=== PATIENT | male | born 1980 | race Caucasian/White ===

== ENCOUNTER 2021-10-24 16:31 | Emergency (ER) | payer OTHER, MEDICAID, SELFPAY ==
[2021-10-24 16:42] VITALS: BP 146/79; PULSE 58; RESP 16; TEMP 36.7; O2SAT 100; BMI 22.7
--- NOTE | 2021-10-24 19:56 | ED_ITS ---
HPI - General Adult General Chief complaint: Dental/Oral Stated complaint: pain, broken tooth Time Seen by Provider: 10/24/21 19:32 Source: patient Mode of arrival: Ambulatory History of Present Illness HPI narrative: Patient is a 41-year-old male here for evaluation of right lower back teeth discomfort. He states that several days ago he was chewing on a piece ago when he felt like piece of his tooth came out. He then realized that it was most likely a piece of a filling. He has had discomfort in the area since then. Has been taking Tylenol and ibuprofen without any improvement. Attempted to contact a dentist today however no one can see him for. Time. Related Data Previous Rx's Medication Instructions Recorded hydrocodone 5 mg-acetaminophen 325 1 tab PO Q4-6H PRN #10 tab 10/24/21 mg tablet Allergies Allergy/AdvReac Type Severity Reaction Status Date / Time amoxicillin Allergy Verified 10/24/21 16:47 Review of Systems ENT Ears, Nose, Mouth, and Throat: Reports system reviewed and no additional complaints, except as documented and Reports as per HPI Respiratory Comments: No problems breathing Gastrointestinal Comments: No problems swallowing Hematologic/Lymphatic On Anticoagulants: No Patient History Medical History Healthy adult Social History lives independently: Yes Exam Initial Vital Signs Initial Vital Signs: Vital Signs Temperature 98.1 F 10/24/21 16:42 Pulse Rate 58 L 10/24/21 16:42 Respiratory Rate 16 10/24/21 16:42 Blood Pressure 146/79 H 10/24/21 16:42 Pulse Oximetry 100 10/24/21 16:42 HENMT Head: normal to inspection and normocephalic Face and sinus: normal facial exam Mouth: oral mucosae normal Teeth and gingiva: other (Right inferior posterior teeth with missing filling.) Resp Effort & Inspection: normal respiratory effort Cardio Rate: regular rate Neuro General: patient alert, patient awake and moves all extremities Course Vital Signs Vital signs: Vital Signs - 8 hr 10/24/21 20:17 Pulse Rate 51 L Respiratory Rate 17 Blood Pressure 127/74 Pulse Oximetry 96 Medical Decision Making [facility] Narrative Medical decision making narrative: Patient does have what appears to have a portion the filling missing in to have his right lower posterior teeth. There is no signs of any infection. A temporary filling was placed. Patient was informed that this was temporary and could potentially come out at any time. He understands that he needs definitive treatment with dental provider. No indication for antibiotics. He was given return precautions. He expressed understanding and agreement. Discharge Plan Departure Patient Disposition: Home Clinical Impression: Fracture of tooth Instructions: DI for Dental Pain Activity Restrictions/Additional Instructions: Your ultimately going to need to be seen by a dentist for definitive care. I would recommend not brushing your right lower teeth because this may dislodge the temporary filling that was placed. Also be careful with chewing. You can continue to take the Tylenol/ibuprofen. Return to the emergency department for any new symptoms. Prescriptions: New hydrocodone-acetaminophen 5-325 mg tablet 1 tab PO Q4-6H PRN (Reason: pain) Qty: 10 0RF
[2021-10-24 20:17] VITALS: BP 127/74; PULSE 51; RESP 17; O2SAT 96
== END 2021-10-24 20:18 | disposition home or self-care (01) ==
PROVIDERS: Emergency Provider Emergency Medicine
DX: S02.5XXA Fracture of tooth (traumatic), initial encounter for closed fracture (principal); X58.XXXA Exposure to other specified factors, initial encounter; Y93.89 Activity, other specified
CPT/HCPCS: 99281

== ENCOUNTER 2021-10-30 21:24 | Emergency (ER) | payer OTHER, MEDICAID, SELFPAY ==
[2021-10-30 21:26] VITALS: BP 123/72; PULSE 73; RESP 18; TEMP 36.7; O2SAT 98; BMI 22.0
--- NOTE | 2021-10-30 21:35 | DI.RAD.S_ITS ---
PROCEDURE: XR CHEST 1V INDICATIONS: chest pain TECHNIQUE: One view of the chest was acquired. COMPARISON: None. FINDINGS: Surgical changes and devices: None. Lungs and pleura: Lungs are clear. No pleural effusions or pneumothorax. Mediastinum: Mediastinal contours appear normal. Heart size is normal. Bones and chest wall: No suspicious bony lesions. Overlying soft tissues appear unremarkable. IMPRESSION: 1. No acute cardiopulmonary disease. Dictated by: John Zaidi M.D. on 10/30/2021 at 22:32 Approved by: John Zaidi M.D. on 10/30/2021 at 22:32
[2021-10-30 23:01] VITALS: BP 120/65; PULSE 63; RESP 22; O2SAT 99
[2021-10-30 23:10] LABS: Add Manual Diff / Slide Review NO; Basophils Absolute Auto 0 /uL (0-100); Basophils Percent Auto 0.4 % (0-2); Eosinophils Absolute Auto 200 /uL (0-450); Eosinophils Percent Auto 1.7 % (2-4); Hematocrit 42.1 % (41-53); Hemoglobin 14.4 g/dL (13.5-17.5); Lymphocytes Absolute Auto 2000 /uL (1100-4500); Lymphocytes Percent Auto 20.5 % (25-40); Mean Corpuscular HGB Conc 34.3 % (30-36); Mean Corpuscular Hemoglobin 31.7 PG (26-34); Mean Corpuscular Volume 92.2 fL (80-100); Monocytes Absolute Auto 700 /uL (0-900); Monocytes Percent Auto 6.9 % (3-14); Neutrophils Absolute Auto 6900 /uL (1500-7000); Neutrophils Percent Auto 70.5 % (50-75); Platelet Count 219 X10^3/uL (150-400); Red Blood Cell Count 4.56 X10^6/uL (4.5-5.9); Red Cell Distribution Width 13.2 % (11.6-14.8); White Blood Cell Count 9.7 X10^3/uL (4.5-11.0)
--- NOTE | 2021-10-30 23:10 | PC.NURSE ---
Pt states that earlier today he had a tooth extracted. Around 1999 he started talking about eating dinner and he had a near syncopal episode, diaphoretic, HR in the 40s per his apple watch. Pt states it lasted 10 min and is now back to base line. Was prescribed a 5mg [place] and took that earlier in the day around 1700
[2021-10-30 23:21] LABS: Alanine Aminotransferase 27 IU/L (<50); Albumin 4.7 g/dL (3.5-5.0); Albumin Globulin Ratio 1.7 (1.0-2.8); Alkaline Phosphatase 44 U/L (38-126); Aspartate Aminotransferase 36 IU/L (17-59); BUN Creatinine Ratio 19.8 (6-22); Bilirubin Total 0.7 mg/dL (0.2-1.3); Blood Urea Nitrogen 17 mg/dL (9-20); Carbon Dioxide 31 mmol/L (22-32); Chloride 101 mmol/L (98-107); Creatine Kinase 305 U/L (55-170); Estimated Glomerular Filt Rate > 60.0 mL/min (>60); Globulin 2.8 g/dL (1.7-4.1); Glucose 94 mg/dL (70-100); HEMOLYSIS < 15 (0-50); Lipase 28 U/L (23-300); Magnesium 2.2 mg/dL (1.6-2.3); Sodium 138 mmol/L (137-145); Total Protein 7.5 g/dL (6.3-8.2)
[2021-10-30 23:30] VITALS: BP 131/80; PULSE 60; RESP 23; O2SAT 97
[2021-10-30 23:32] LABS: Troponin I < 0.012 ng/mL (0.01-0.034)
--- NOTE | 2021-10-30 23:35 | ED.GENADULT ---
HPI - General Adult General Chief complaint: Syncope Stated complaint: PASSED OUT LOW HEART RATE HAD A TOOTH PULLED OUT Time Seen by Provider: 10/30/21 22:48 Source: patient Mode of arrival: Ambulatory History of Present Illness HPI narrative: Patient is a 41-year-old male. Earlier today he was seen by dentist. Had a tooth extraction. States that it was uncomplicated. Discharge home. Slept early this afternoon. He does state that he did drink a couple protein shakes today but otherwise did not have much oral intake. He did take a pain medication and also ibuprofen. Several hours later he was sitting on the couch talking with his . He suddenly started to not feel very well. Had what appeared to be a syncopal episode. Lasted seconds. No loss of bowel or bladder. Was somewhat confused afterwards but not postictal. Improved as time went on afterwards. He states that his told him that he looked very pale afterwards. Proceeding the event he had no chest pain, shortness of breath, headache. Of the time my evaluation he felt like he was back to normal again. Related Data Previous Rx's Medication Instructions Recorded hydrocodone 5 mg-acetaminophen 325 1 tab PO Q4-6H PRN #10 tab 10/24/21 mg tablet Allergies Allergy/AdvReac Type Severity Reaction Status Date / Time amoxicillin Allergy Verified 10/24/21 16:47 Review of Systems Constitutional Constitutional: Reports system reviewed and no additional complaints, except as documented Cardiovascular Cardiovascular: Reports system reviewed and no additional complaints, except as documented Respiratory Respiratory: Reports system reviewed and no additional complaints, except as documented Gastrointestinal Gastrointestinal: Reports system reviewed and no additional complaints, except as documented Integumentary/Breasts Skin/Breast: Reports system reviewed and no additional complaints, except as documented Neurologic Neurologic: Reports system reviewed and no additional complaints, except as documented and Reports as per HPI Hematologic/Lymphatic On Anticoagulants: No Allergic/Immunologic Allergic/Immunologic: Reports system reviewed and no additional complaints, except as documented Patient History Medical History Healthy adult Social History lives independently: Yes Smoking Status: Never smoker Smoking Status: Never smoker alcohol intake frequency: 0-2 drinks per day Substance Use Type: marijuana Exam Initial Vital Signs Initial Vital Signs: Vital Signs Temperature 98.1 F 10/30/21 21:26 Pulse Rate 73 10/30/21 21:26 Respiratory Rate 18 10/30/21 21:26 Blood Pressure 123/72 10/30/21 21:26 Pulse Oximetry 98 10/30/21 21:26 HENMT Teeth and gingiva: other (Missing right posterior tooth consistent with extraction today) Resp Effort & Inspection: normal respiratory effort Cardio Rate: regular rate Skin General: no rashes or lesions noted Neuro General: patient alert, patient awake, patient oriented x3, moves all extremities and not confused Cognition: normal cognition Speech: speech normal Extrem General: normal to inspection and capillary refill normal Psych Appearance: grossly normal and well kempt Scores GCS [place] coma scale eye opening: Spontaneous Mehul coma scale verbal response: Orientated [place] coma scale motor response: Obey commands [place] coma scale total score: 15 Course Orders Ordered: ED Orders 10/30/21 21:35 XR chest 1V Stat EKG-12 Lead Stat 10/30/21 23:00 Complete Blood Count AUTO DIFF Stat Comprehensive Metabolic Panel Stat Lipase Stat Magnesium Stat Troponin & CK Cardiac Panel Stat Discontinued Medications Sodium Chloride (Normal Saline 0.9%) 1,000 mls @ 1,000 mls/hr IV BOLUS ONE Stop: 10/31/21 00:05 Last Admin: 10/30/21 23:40 Dose: Not Given Documented by: LINDSAY Vital Signs Vital signs: Vital Signs - 8 hr 10/30/21 21:26 10/30/21 23:01 10/30/21 23:30 Temperature 98.1 F Pulse Rate 73 63 60 Respiratory Rate 18 22 23 Blood Pressure 123/72 120/65 131/80 Pulse Oximetry 98 99 97 Medical Decision Making Medical Records Medical records reviewed: Yes I reviewed the patient's medical records. Lab Data Lab results reviewed: Yes I reviewed the patient's lab results. Result diagrams: 10/30/21 23:00 10/30/21 23:00 Labs: Lab Results 10/30/21 10/30/21 Range/Units 23:00 23:00 WBC 9.7 (4.5-11.0) X10^3/uL RBC 4.56 (4.5-5.9) X10^6/uL Hgb 14.4 (13.5-17.5) g/dL Hct 42.1 (41-53) % MCV 92.2 (80-100) fL MCH 31.7 (26-34) PG MCHC 34.3 (30-36) % RDW 13.2 (11.6-14.8) % Plt Count 219 (150-400) X10^3/uL Neut % (Auto) 70.5 (50-75) % Lymph % (Auto) 20.5 L (25-40) % [place] % (Auto) 6.9 (3-14) % Eos % (Auto) 1.7 L (2-4) % Baso % (Auto) 0.4 (0-2) % Neut # (Auto) 6900 (0689-4675) /uL Lymph # (Auto) 2000 (2564-4039) /uL [place] # (Auto) 700 (0-900) /uL Eos # (Auto) 200 (0-450) /uL Baso # (Auto) 0 (0-100) /uL Sodium 138 (137-145) mmol/L Potassium 4.0 (3.4-5.1) mmol/L Chloride 101 (98-107) mmol/L Carbon Dioxide 31 (22-32) mmol/L BUN 17 (9-20) mg/dL Creatinine 0.86 (0.66-1.25) mg/dL Estimated GFR > 60.0 (>60) mL/min BUN/Creatinine Ratio 19.8 (6-22) Glucose 94 (70-100) mg/dL Calcium 10.0 (8.4-10.2) mg/dL Magnesium 2.2 (1.6-2.3) mg/dL Total Bilirubin 0.7 (0.2-1.3) mg/dL AST 36 (17-59) IU/L ALT 27 (<50) IU/L Alkaline Phosphatase 44 (38-126) U/L Total Creatine Kinase 305 H (55-170) U/L CK-MB (CK-2) 1.60 (<2.37) ng/mL CK-MB (CK-2) Rel Index 0.5 L (1.5-5.0) % Troponin I < 0.012 (0.01-0.034) ng/mL Total Protein 7.5 (6.3-8.2) g/dL Albumin 4.7 (3.5-5.0) g/dL Globulin 2.8 (1.7-4.1) g/dL Albumin/Globulin Ratio 1.7 (1.0-2.8) Lipase 28 (23-300) U/L ECG Data Attestation: I personally reviewed and interpreted this ECG as follows: Interpretation: Sinus rhythm Ventricular rate is 74 Normal axis Normal QRS Normal QTC No ST T wave changes MDM Narrative Medical decision making narrative: Patient appears well. The extraction site in the right posterior lower jaw appears well. His EKG is unremarkable. Vital signs unremarkable. Unsure the exact etiology however symptoms not consistent with seizure. Do suspect vasovagal based on his presentation and the rest of the events throughout today. I did discuss this with him. No further workup needed in the emergency department. We did discuss strict return precautions and follow-up instructions. He expressed understanding and agreement. Discharge Plan Departure Patient Disposition: Home Clinical Impression: Syncope Instructions: DI for Syncope in Adults (Fainting) Activity Restrictions/Additional Instructions: Patient that you are staying on top of the discomfort been taking the pain medication. Be sure that you are staying hydrated. Follow all of the instructions given to you by the dentist. Return to the emergency department for any new or worsening symptoms. Prescriptions: No Action hydrocodone-acetaminophen 5-325 mg tablet 1 tab PO Q4-6H PRN (Reason: pain) Qty: 10 0RF
[2021-10-30 23:36] LABS: CKMB % Relative Index 0.5 % (1.5-5.0)
== END 2021-10-30 23:41 | disposition home or self-care (01) ==
PROVIDERS: Emergency Provider Emergency Medicine
DX: R55 Syncope and collapse (principal)
CPT/HCPCS: 36415; 71045; 80053; 82550; 82553; 83690; 83735; 84484; 85025; 93005; 99284

== ENCOUNTER → 2022-02-27 09:00 | Outpatient (CLI) | payer OTHER, MEDICAID, SELFPAY ==
[2022-02-27 09:50] LABS: Hemoglobin A1C% w Est Avg Glu 4.7 % (4.0-6.0)
[2022-02-27 09:57] LABS: Add Manual Diff / Slide Review NO; Basophils Absolute Auto 0 /uL (0-100); Basophils Percent Auto 0.5 % (0-2); Eosinophils Absolute Auto 100 /uL (0-450); Eosinophils Percent Auto 2.1 % (2-4); Hematocrit 40.6 % (41-53); Hemoglobin 14.2 g/dL (13.5-17.5); Lymphocytes Absolute Auto 1800 /uL (1100-4500); Lymphocytes Percent Auto 33.5 % (25-40); Mean Corpuscular HGB Conc 35.1 % (30-36); Mean Corpuscular Hemoglobin 32.5 PG (26-34); Mean Corpuscular Volume 92.8 fL (80-100); Monocytes Absolute Auto 400 /uL (0-900); Monocytes Percent Auto 6.9 % (3-14); Neutrophils Absolute Auto 3100 /uL (1500-7000); Platelet Count 235 X10^3/uL (150-400); Red Blood Cell Count 4.38 X10^6/uL (4.5-5.9); Red Cell Distribution Width 13.1 % (11.6-14.8); White Blood Cell Count 5.5 X10^3/uL (4.5-11.0)
[2022-02-27 10:38] LABS: Alanine Aminotransferase 18 IU/L (<50); Albumin 5.1 g/dL (3.5-5.0); Albumin Globulin Ratio 2.3 (1.0-2.8); Alkaline Phosphatase 45 U/L (38-126); Aspartate Aminotransferase 29 IU/L (17-59); BUN Creatinine Ratio 15.9 (6-22); Bilirubin Total 0.7 mg/dL (0.2-1.3); Blood Urea Nitrogen 14 mg/dL (9-20); Carbon Dioxide 30 mmol/L (22-32); Chloride 105 mmol/L (98-107); Estimated Glomerular Filt Rate > 60 mL/min (>60); Globulin 2.2 g/dL (1.7-4.1); Glucose 128 mg/dL (70-100); HEMOLYSIS < 15 (0-50); Sodium 142 mmol/L (137-145); Total Protein 7.3 g/dL (6.3-8.2)
[2022-02-27 10:59] LABS: TSH w/ Reflex to FT4 1.51 uIU/mL (0.47-4.68)
== END ==
PROVIDERS: PCP Physician Assistant; Referring Provider Physician Assistant; Visit Provider Physician Assistant
DX: R61 Generalized hyperhidrosis (principal); R35.89 Other polyuria
CPT/HCPCS: 36415; 80053; 83036; 84443; 85025

== ENCOUNTER → 2022-03-14 08:08 | Outpatient (CLI) | payer OTHER, MEDICAID, SELFPAY ==
--- NOTE | 2022-03-14 09:18 | DI.CT.S_ITS ---
PROCEDURE: CT CHEST ABD PEL W CON INDICATIONS: Generalized hyperhidrosis TECHNIQUE: After the administration of oral and intravenous contrast, axial sections acquired from the supraclavicular neck to the pubic symphysis. Coronal and sagittal reformats were performed. For radiation dose reduction, the following was used: automated exposure control, adjustment of mA and/or kV according to patient size. COMPARISON: [facility], CR, XR CHEST 1V, 10/30/2021, 22:13. FINDINGS: Image quality: Excellent. CHEST: Lower Neck: No enlarged lymph nodes. Thyroid: Within normal limits. Axillae: No enlarged lymph nodes. Chest Wall: Unremarkable. Lungs and Airways: No consolidation or suspicious nodules. Pleura: No pneumothorax or pleural effusions. Heart: Heart size is normal. No pericardial effusion. Thoracic Vessels: The aorta and pulmonary arteries demonstrate normal size. Mediastinum and [place]: No enlarged lymph nodes. There is a small amount residual thymus tissue seen, which is not regarded to be pathologic in a patient of this age. Esophagus: No wall thickening. No hiatal hernia. ABDOMEN: Liver: Within the right posterior liver, there is an irregular 2.4 cm low-density lesion with apparent peripheral puddling of contrast seen. A similar smaller lesion can be seen within the inferolateral right liver, as on series 2 image 80 measuring 1.3 cm. Gallbladder: Unremarkable. Biliary ducts: Unremarkable. Pancreas: Unremarkable. Spleen: Unremarkable. Adrenal Glands: Unremarkable. Kidneys and Ureters: Unremarkable. Stomach and Bowel: Areas of apparent wall thickening can be seen involving the distal sigmoid and the rectum. Stomach, small bowel loops, and colon are otherwise unremarkable. A normal appendix is incidentally noted. Peritoneum: No abnormal intraperitoneal fluid. No free air. Ventral Wall: No hernia. Abdominal Nodes: No retroperitoneal or mesenteric adenopathy by size criteria. Vessels: Aorta and inferior vena cava are normal in size. PELVIS: Pelvic Organs: Unremarkable. Bladder: Unremarkable. Pelvic Nodes: No enlarged lymph nodes. Miscellaneous: No inguinal hernias are seen. Bones: Unremarkable. IMPRESSION: No imaging explanation is found for this patient's presenting symptoms. Areas of apparent wall thickening can be seen involving the distal sigmoid and the rectum. If clinically appropriate, please consider a follow-up lower endoscopy for further evaluation. Likely hemangiomas can be seen within the liver. Please consider a follow-up liver protocol MRI (without and with contrast) for further evaluation (assuming that there is no contraindication). Dictated by: Johnson Fuchs M.D. on 03/14/2022 at 11:18 Approved by: Johnson Fuchs M.D. on 03/14/2022 at 11:23
== END ==
PROVIDERS: PCP Physician Assistant; Referring Provider Physician Assistant; Visit Provider Physician Assistant
DX: R61 Generalized hyperhidrosis (principal); K76.9 Liver disease, unspecified
CPT/HCPCS: 71260; 74177

== ENCOUNTER → 2022-04-18 09:27 | Outpatient (CLI) | payer OTHER, MEDICAID, SELFPAY ==
[2022-04-18 11:49] LABS: COVID19 -Nasal RAPID Negative (Negative)
== END ==
PROVIDERS: PCP Physician Assistant; Visit Provider Surgery
DX: Z01.812 Encounter for preprocedural laboratory examination (principal); Z20.822 Contact with and (suspected) exposure to COVID-19
CPT/HCPCS: 87635; C9803

== ENCOUNTER 2022-04-19 14:50 | Day surgery (SDC) | payer OTHER, MEDICAID, SELFPAY ==
[2022-04-19] VITALS (7 sets, daily range): BP systolic 104–126; BP diastolic 59–69; PULSE 55–77; RESP 12–16; TEMP 36.8–36.9; O2SAT 97–99; BMI 23.5
--- NOTE | 2022-04-19 16:37 | P.HP_ITS ---
History of Present Illness History of Present Illness Date Patient Seen: 04/19/22 Time Patient Seen: 16:37 Chief [place] [facility] [place]ative: Jose is a 41-year-old man who had a recent CT scan which reported thickening of the sigmoid colon and recommended an endoscopy. He has no melena or hematochezia. No known family history of colon cancer. He has never had a colonoscopy before. Patient History Medical History Healthy adult Family & Social History Social History: household members spouse lives independently Yes Tobacco & Substance use: Smoking Status Never smoker alcohol intake never alcohol intake frequency 0-2 drinks per day Substance Use Type marijuana Meds Home Medications and Allergies Home Medications Medication Instructions Recorded Confirmed Type hydrocodone 5 mg-acetaminophen 325 1 tab PO Q4-6H PRN pain #10 tabs 10/24/21 Rx mg tablet Allergies Allergy/AdvReac Type Severity Reaction Status Date / Time amoxicillin Allergy Verified 10/24/21 16:47 Exam Vital Signs (past 8 hours): - 04/19/22 15:12 Temperature 98.5 F Pulse Rate 71 Respiratory Rate 16 Blood Pressure 126/69 Pulse Oximetry 99 Const General: healthy appearing Resp Effort & Inspection: normal respiratory effort Neuro General: patient alert and patient awake Assessment & Plan Assessment and plan (1) Abnormal findings on imaging test: Status: Acute Plan We discussed the risks and benefits of colonoscopy to evaluate his colon following abnormal imaging colon. He would like to proceed COVID-19 COVID-19 status: Negative Result date/Date tested (Pos, Neg/Pending): 04/18/22 Time Spent With Patient Critical Care time: I spent a total of [] minutes of critical care time on this patient's care today; this time is exclusive of procedural time.
[2022-04-19] MEDS: MIDAZOLAM 5 MG/5 ML VIAL 11 MG IV (17:04)
[2022-04-19] MEDS: fentaNYL 250 MCG/5 ML INJ 150 MCG IV (17:04)
--- NOTE | 2022-04-19 17:16 | PM.OP.COLON ---
Operative Date/Time/Diagnoses Date of procedure: 04/19/22 Time of procedure: 17:16 Pre-op diagnosis: Abnormal imaging Post-op diagnosis: same Procedure & Clinicians Study performed: Colonoscopy Same procedure as scheduled: Yes Surgeon: Eros Padgett Procedure Notes Procedure in detail: Surgeon: Eros Padgett MD Procedure: The patient was brought to the endoscopy suite, placed in left lateral decubitus position. The patient was connected to monitoring devices. A time-out was performed. Sedation was administered. Once the patient was adequately sedated, a digital rectal exam was performed and was normal. The scope was then inserted and advanced to the cecum where the appendiceal orifice was identified and photographed. The scope was then slowly withdrawn over greater than 6 minutes. The mucosa was thoroughly inspected. There were no abnormalities. The scope was retroflexed in the rectum. No abnormalities were noted. The scope was straightened and removed. The patient was awakened and brought to recovery. Versed: 11 mg Fentanyl: 150 mcg EBL: 0 Findings: Normal colon Scope withdrawal time: 7 Sedation minutes: 27 Post-procedure Recommendations: Colonoscopy in 10 years Disposition: PACU
== END 2022-04-19 18:00 | disposition home or self-care (01) ==
PROVIDERS: PCP Physician Assistant; Referring Provider Surgery; Visit Provider Surgery
PROC: 0DJD8ZZ Inspection of Lower Intestinal Tract, Via Natural or Artificial Opening Endoscopic (ICD-10-PCS; CPT 45378; principal; 2022-04-19 16:00)
DX: R93.3 Abnormal findings on diagnostic imaging of other parts of digestive tract (principal)
CPT/HCPCS: 45378; 99152; 99153; J2250; J3010